=== PATIENT | male | born 1955 | race Caucasian/White ===

== ENCOUNTER 2017-10-11 06:28 | Emergency (ER) | payer SELFPAY ==
[~2017-10-11] VITALS: Ht 180.3 cm; Wt 90.0 kg
[2017-10-11 06:31] VITALS: BP 139/91; PULSE 62; RESP 16; TEMP 97.6; O2SAT 97
[2017-10-11] MEDS ORDERED: TAMS5CAP PO (06:47)
[2017-10-11] MEDS ORDERED: SODIUM CHLOR 0.9% 1000 ML INJ 1,000 ML IV ONE (07:35)
[2017-10-11] MEDS ORDERED: MORPHINE SULFATE 4 MG/ML INJ IV PUSH ONE ×2 (07:45→11:15)
[2017-10-11] MEDS ORDERED: KETOROLAC TROMETHAMINE 30 MG/ML (IVP) VIAL IV PUSH ONE (07:45)
[2017-10-11] MEDS ORDERED: SODIUM CHLORIDE 0.9% FLUSH 10 ML FLUSH IVF PRN (07:45)
[2017-10-11] MEDS ORDERED: ONDANSETRON HCL 4 MG/2 ML VIAL IV PUSH ONE (07:45)
[2017-10-11 08:08] LABS: BILIRUBIN, URINE NEG (NEG); BLOOD, URINE SMALL (NEG); GLUCOSE,URINE NEG (NEG); HYALINE CAST, URINE 1 /lpf (RARE); KETONE, URINE NEG (NEG); MUCUS URINE FEW /lpf (OCC); NITRITE,URINE NEG (NEG); PH, URINE 6.5 (5.0-8.5); URINE COLOR YELLOW (YELLW/STRAW); URINE LEUKOCYTE ESTERASE SMALL (NEG)
--- NOTE | 2017-10-11 08:10 | PD ---
HPI Chief Complaint: Flank/Kidney Pain Time Seen by Provider: 07:00 Travel History International Travel<30 days: No Contact w/Intl Traveler<30days: No Traveled to known affect area: No History of Present Illness HPI 61-year-old male with history of bilateral renal pack, presents today with complaints of left sided flank pain. Patient reports associated nausea with no vomiting. Patient reports passing a stone 5 days ago. He states he was feeling good after that however shortly thereafter he started sprinting more pain. He denies any fevers, chills. He reports his urine is darker than normal. The patient denies any abdominal pain. There is no reported diarrhea. There are no other complaints with this presentation. PFSH Past Medical History Kidney Stones: Yes Medical other: Yes (HX MRSA) Past Surgical History Abdominal Surgery: Yes (HERNIA REPAIR ) Social History Alcohol Use: Yes (RARE) Tobacco Use: Yes (2PPD) Substance Use: Yes (WEED) Allergies-Medications (Allergen,Severity, Reaction): Coded Allergies: No Known Allergies (Unverified , 10/11/17) Reported Meds & Prescriptions Reported Meds & Active Scripts Active Levaquin (Levofloxacin) 500 Mg Tablet 500 Mg PO DAILY Ketorolac (Ketorolac Tromethamine) 10 Mg Tab 10 Mg PO TID PRN Lorcet (Hydrocodone-Acetaminophen) 5-325 mg Tab 1 Tab PO Q6H PRN Reported Flomax (Tamsulosin HCl) 0.4 Mg Cap 0.4 Mg PO HS Review of Systems Except as stated in HPI: all other systems reviewed are Neg General / Constitutional: No: Fever, Chills HENT: No: Headaches, Lightheadedness, Neck Pain Cardiovascular: No: Chest Pain or Discomfort, Palpitations Respiratory: No: Cough, Shortness of Breath Gastrointestinal: Positive: Nausea, No: Vomiting, Abdominal Pain Genitourinary: Positive: Other, No: Dysuria Musculoskeletal: Positive: Pain (dark colored urine than normal. Bilateral flank pain, worse on the left than on the right.), No: Weakness Skin: No Rash, No Lesions Neurologic: No: Weakness, Dizziness Physical Exam Narrative GENERAL: Well-developed well-nourished male in no acute respiratory distress. SKIN: Focused skin assessment warm/dry. HEAD: Atraumatic. Normocephalic. EYES: Pupils equal and round. No scleral icterus. No injection or drainage. ENT: No nasal bleeding or discharge. Mucous membranes pink and moist. NECK: Trachea midline./Atraumatic CARDIOVASCULAR: Regular rate and rhythm. No murmur appreciated. RESPIRATORY: No accessory muscle use. Clear to auscultation. Breath sounds equal bilaterally. GASTROINTESTINAL: Abdomen soft, non-tender, nondistended. MUSCULOSKELETAL: No obvious deformities. No clubbing. No cyanosis. No edema. BACK: No CVA tenderness. No rash. No point tenderness on palpation of the spine. Objective left flank pain. Patient reports deeper than on the surface. Not reproducible. NEUROLOGICAL: Awake and alert. No obvious cranial nerve deficits. Motor grossly within normal limits. Normal speech. PSYCHIATRIC: Appropriate mood and affect; insight and judgment normal. Data Data Last Documented VS Vital Signs Date Time Temp Pulse Resp B/P (MAP) Pulse Ox O2 Delivery O2 Flow Rate FiO2 10/11/17 09:42 53 14 110/66 (81) 94 Room Air 10/11/17 06:31 97.6 Orders Orders Basic Metabolic Panel (Bmp) (10/11/17 07:35) Urinalysis - C+S If Indicated (10/11/17 07:35) Ecg Monitoring (10/11/17 07:35) Iv Access Insert/Monitor (10/11/17 07:35) Ketorolac Inj (Toradol Inj) (10/11/17 07:45) Ondansetron Inj (Zofran Inj) (10/11/17 07:45) Sodium Chloride 0.9% Flush (Ns Flush) (10/11/17 07:45) Sodium Chlor 0.9% 1000 Ml Inj (Ns 1000 M (10/11/17 07:35) Morphine Inj (Morphine Inj) (10/11/17 07:45) Ct Abd/Pel W/O Iv Contrast (10/11/17 07:49) Urine Culture (10/11/17 08:00) Levofloxacin 500 Mg Premix Inj (Levaquin (10/11/17 09:30) Labs Laboratory Tests Test 10/11/17 07:55 10/11/17 08:00 Blood Urea Nitrogen 15 MG/DL Creatinine 0.96 MG/DL Random Glucose 106 MG/DL Calcium Level 9.1 MG/DL Sodium Level 142 MEQ/L Potassium Level 4.3 MEQ/L Chloride Level 109 MEQ/L Carbon Dioxide Level 25.4 MEQ/L Anion Gap 8 MEQ/L Estimat Glomerular Filtration Rate 80 ML/MIN Urine Color YELLOW Urine Turbidity CLEAR Urine pH 6.5 Urine Specific Abbott 1.014 Urine Protein NEG mg/dL Urine Glucose (UA) NEG mg/dL Urine Ketones NEG mg/dL Urine Occult Blood SMALL Urine Nitrite NEG Urine Bilirubin NEG Urine Urobilinogen LESS THAN 2.0 MG/DL Urine Leukocyte Esterase SMALL Urine RBC 19 /hpf Urine WBC 18 /hpf Urine Hyaline Casts 1 /lpf Urine Mucus FEW /lpf Microscopic Urinalysis Comment CULTURE INDICATED MDM Medical Decision Making Medical Screen Exam Complete: Yes Emergency Medical Condition: Yes Differential Diagnosis Ureteral colic versus muscle skeletal pain versus pyelonephritis Narrative Course 61-year-old male history of renal coccus, presents today with points of left flank pain. Patient denies any fevers, chills. Patient has evidence of a urinary tract infection as well as hematuria on his urinalysis. Patient's CT scan shows a 5 mm stone on the left proximal ureter with moderate hydronephrosis. The patient has been given 500 mg of IVD Levaquin. He is also been given 1 L of fluid as well as 30 mg of ketorolac and 4 mg of morphine. He is much more comfortable. He'll be discharged with a prescription for Levaquin 500 mg daily for 9 days, Toradol 10 mg 3 times a day for 4 days, Lortab fives total number of 15 as needed for breakthrough pain for the Toradol. The patient will have a mandatory constant for urology. He is instructed return of he does any worsening pain, fevers chills, or any other reason. Diagnosis Primary Impression: Ureteral colic Additional Impression: UTI (urinary tract infection) Additional Instructions: Increase fluid intake. Return if worsening pain, fevers, chills, nausea vomiting, or any other reason that concerned her. A mandatory referral has been placed for outpatient urology follow up. He should receive a call within the next few days. Med/Other Pt SpecificInfo: Prescription(s) given Scripts Levofloxacin (Levaquin) 500 Mg Tablet 500 MG PO DAILY for Infection, #9 TAB 0 Refills Prov: Galen Lancaster MD 10/11/17 Ketorolac (Ketorolac) 10 Mg Tab 10 MG PO TID Y for PAIN SCALE 1 TO 5, #12 TAB 0 Refills Prov: Galen Lancaster MD 10/11/17 Hydrocodone-Acetaminophen (Lorcet) 5-325 mg Tab 1 TAB PO Q6H Y for PAIN, #15 TAB 0 Refills Prov: Galen Lancaster MD 10/11/17 Disposition: 01 DISCHARGE HOME Condition: Stable Galen Lancaster MD Oct 11, 2017 08:10
[2017-10-11 08:21] LABS: BICARBONATE 25.4 MEQ/L (21.0-32.0); CALCIUM 9.1 MG/DL (8.5-10.1); CREATININE 0.96 MG/DL (0.60-1.30)
--- NOTE | 2017-10-11 08:29 | RADRPT ---
EXAM DATE/TIME: 10/11/2017 07:50 [facility] COMPARISON: No previous studies available for comparison. INDICATIONS : Bilateral flank pain . ORAL CONTRAST: No oral contrast ingested. RADIATION DOSE: 16.01 CTDIvol (mGy) MEDICAL HISTORY : Hypertension. Renal calculi. SURGICAL HISTORY : Inguinal hernia repair. ENCOUNTER: Initial ACUITY: 2 days PAIN SCALE: 10/10 LOCATION: Bilateral flank TECHNIQUE: Volumetric scanning of the abdomen and pelvis was performed. Using automated exposure control and ad justment of the mA and/or kV according to patient size, radiation dose was kept as low as reasonably achievable to obtain optimal diagnostic quality images. DICOM format image data is available electro nically for review and comparison. FINDINGS: LOWER LUNGS: The visualized lower lungs are clear. LIVER: The liver is diffusely low in attenuation consistent with fatty infiltration. Focal fatty sparing is seen adjacent to the gallbladder fossa. No mass or ductal dilatation. Gallbladder is unremarkable. SPLEEN: Normal size without lesion. PANCREAS: Within normal limits. KIDNEYS: A 5 mm proximal left ureteral stone observed. Discharge mild hydronephrosis and hydroureter. No perin ephric stranding or fluid collections. No other stones observed. Atherosclerotic calcifications noted within the renal pelves bilaterally. ADRENAL GLANDS: Within normal limits. VASCULAR: There is no aortic aneurysm. BOWEL/MESENTERY: The stomach, small bowel, and colon demonstrate no acute abnormality. There is no free intraperitone al air or fluid. ABDOMINAL WALL: Within normal limits. RETROPERITONEUM: There is no lymphadenopathy. BLADDER: No wall thickening or mass. REPRODUCTIVE: Within normal limits. INGUINAL: There is no lymphadenopathy or hernia. MUSCULOSKELETAL: Within normal limits for patient age. CONCLUSION: 1. 5 mm proximal left ureteral stone with mild hydronephrosis and hydroureter. The stone is currently at the L3-L4 disc space level. 2. Hepatic steatosis. Gume Maxwell Jr., MD on October 11, 2017 at 8:09 Board Certified Radiologist. This report was verified electronically.
[2017-10-11] MEDS ORDERED: LEVOFLOXACIN 500 MG PREMIX INJ 100 ML IV ONE (09:30)
[2017-10-11] MEDS ORDERED: LEVA500T33 PO (09:33)
[2017-10-11] MEDS ORDERED: HYDR-3576 PO (09:33)
[2017-10-11] MEDS ORDERED: KETO10 PO (09:33)
[2017-10-11 09:42] VITALS: BP 110/66; PULSE 53; RESP 14; O2SAT 94
[2017-10-11 11:04] VITALS: BP 120/68; PULSE 50; RESP 16; O2SAT 94
[2017-10-11 12:00] VITALS: BP 125/60; PULSE 60; RESP 16; O2SAT 95
== END 2017-10-11 12:24 | disposition home or self-care (01) ==
LOC: NEPE 06:28
DX: N23 Unspecified renal colic (principal); N39.0 Urinary tract infection, site not specified; F17.210 Nicotine dependence, cigarettes, uncomplicated; Z87.442 Personal history of urinary calculi
CPT/HCPCS: 74176; 80048; 81001; 87086; 96361; 96374; 96375; 96376; 99285; J1885; J1956; J2270; J2405; J7030

== ENCOUNTER 2017-11-02 13:08 | Emergency (ER) | payer SELFPAY ==
[~2017-11-02] VITALS: Ht 180.3 cm; Wt 100.0 kg
[~2017-11-02 13:08] MED LIST: HYDR-3576 PO; KETO10 PO; LEVA500T33 PO; TAMS5CAP PO
[2017-11-02 13:11] VITALS: BP 129/77; PULSE 69; RESP 12; TEMP 98; O2SAT 98
--- NOTE | 2017-11-02 13:48 | PD ---
HPI Chief Complaint: Complaint Time Seen by Provider: 13:44 Travel History International Travel<30 days: No Contact w/Intl Traveler<30days: No Traveled to known affect area: No History of Present Illness HPI 61-year-old male with history of left-sided flank pain off and on for the past 3 weeks. Patient states he was seen here 3 weeks ago and told had a 5 mm stone in his left ureter. Was referred to urologist on a mandatory referral but never got a call back according to him and his . He states he is doing okay until 2 days ago when he had increasing woody-colored urine, and an increasing pain overnight with derrek blood in his urine since last evening. His pain is currently 9 and 10 in the left flank with radiation into the left testicle. Patient is nauseous but denies vomiting. Patient denies fever, chills, or other symptoms. Patient has no known drug allergies. PFSH Past Medical History Kidney Stones: Yes Past Surgical History Abdominal Surgery: Yes (HERNIA REPAIR ) Social History Alcohol Use: Yes (RARE) Tobacco Use: Yes (1/2PPD) Substance Use: Yes (WEED) Allergies-Medications (Allergen,Severity, Reaction): Coded Allergies: No Known Allergies (Unverified , 10/11/17) Reported Meds & Prescriptions Reported Meds & Active Scripts Active Percocet (Oxycodone-Acetaminophen) 5-325 mg Tab 1 Tab PO Q6H PRN Zofran (Ondansetron HCl) 4 Mg Tab 4 Mg PO Q6HR PRN Cipro (Ciprofloxacin HCl) 500 Mg Tab 500 Mg PO BID Flomax (Tamsulosin HCl) 0.4 Mg Cap 0.4 Mg PO HS Levaquin (Levofloxacin) 500 Mg Tablet 500 Mg PO DAILY Ketorolac (Ketorolac Tromethamine) 10 Mg Tab 10 Mg PO TID PRN Lorcet (Hydrocodone-Acetaminophen) 5-325 mg Tab 1 Tab PO Q6H PRN Review of Systems Except as stated in HPI: all other systems reviewed are Neg General / Constitutional: No: Fever, Chills Eyes: No: Visual changes HENT: No: Headaches Cardiovascular: No: Chest Pain or Discomfort Respiratory: No: Shortness of Breath Gastrointestinal: Positive: Nausea, No: Abdominal Pain Genitourinary: Positive: Hematuria, Flank Pain, No: Urgency, Frequency, Dysuria , Nocturia Musculoskeletal: No: Pain Skin: No Rash Neurologic: No: Weakness Psychiatric: No: Depression Endocrine: No: Polydipsia Hematologic/Lymphatic: No: Easy Bruising Physical Exam Narrative GENERAL: Patient appears in moderate distress. SKIN: Warm. Decreased bowel without diaphoresis HEAD: Atraumatic. Normocephalic. EYES: Pupils equal and round. No scleral icterus. No injection or drainage. ENT: No nasal bleeding or discharge. Mucous membranes pink and moist. Pharynx clear. Airway patent. NECK: Trachea midline. Supple nontender. CARDIOVASCULAR: Regular rate and rhythm. RESPIRATORY: No accessory muscle use. Clear to auscultation. Breath sounds equal bilaterally. GASTROINTESTINAL: Abdomen soft, non-tender, nondistended. Hepatic and splenic margins not palpable. MUSCULOSKELETAL: Extremities without clubbing, cyanosis, or edema. No obvious deformities. NEUROLOGICAL: Awake and alert. No obvious cranial nerve deficits. Motor grossly within normal limits. Five out of 5 muscle strength in the arms and legs. Normal speech. PSYCHIATRIC: Appropriate mood and affect; insight and judgment normal. Data Data Last Documented VS Vital Signs Date Time Temp Pulse Resp B/P (MAP) Pulse Ox O2 Delivery O2 Flow Rate FiO2 11/02/17 14:17 18 11/02/17 13:11 98.0 12 129/77 (94) 98 Room Air Orders Orders Complete Blood Count With Diff (11/02/17 13:52) Comprehensive Metabolic Panel (11/02/17 13:52) Ua Includes Microscopic (11/02/17 13:52) Ct Abd/Pel W/O Iv Contrast (11/02/17 13:52) Iv Access Insert/Monitor (11/02/17 13:52) Ketorolac Inj (Toradol Inj) (11/02/17 14:00) Ondansetron Inj (Zofran Inj) (11/02/17 14:00) Sodium Chloride 0.9% Flush (Ns Flush) (11/02/17 14:00) Morphine Inj (Morphine Inj) (11/02/17 14:00) Sodium Chlor 0.9% 1000 Ml Inj (Ns 1000 M (11/02/17 14:00) Tamsulosin (Flomax) (11/02/17 14:30) Oxycodone-Acetamin 5-325 Mg (Percocet (11/02/17 15:45) Labs Laboratory Tests Test 11/02/17 14:10 White Blood Count 9.2 TH/MM3 Red Blood Count 4.54 MIL/MM3 Hemoglobin 14.5 GM/DL Hematocrit 42.0 % Mean Corpuscular Volume 92.6 FL Mean Corpuscular Hemoglobin 32.0 PG Mean Corpuscular Hemoglobin Concent 34.6 % Red Cell Distribution Width 13.5 % Platelet Count 212 TH/MM3 Mean Platelet Volume 8.7 FL Neutrophils (%) (Auto) 63.9 % Lymphocytes (%) (Auto) 21.7 % Monocytes (%) (Auto) 11.8 % Eosinophils (%) (Auto) 2.1 % Basophils (%) (Auto) 0.5 % Neutrophils # (Auto) 5.9 TH/MM3 Lymphocytes # (Auto) 2.0 TH/MM3 Monocytes # (Auto) 1.1 TH/MM3 Eosinophils # (Auto) 0.2 TH/MM3 Basophils # (Auto) 0.0 TH/MM3 CBC Comment DIFF FINAL Differential Comment Blood Urea Nitrogen 19 MG/DL Creatinine 1.31 MG/DL Random Glucose 89 MG/DL Total Protein 6.9 GM/DL Albumin 3.6 GM/DL Calcium Level 8.8 MG/DL Alkaline Phosphatase 103 U/L Aspartate Amino Transf (AST/SGOT) 20 U/L Alanine Aminotransferase (ALT/SGPT) 21 U/L Total Bilirubin 0.6 MG/DL Sodium Level 139 MEQ/L Potassium Level 4.0 MEQ/L Chloride Level 107 MEQ/L Carbon Dioxide Level 24.4 MEQ/L Anion Gap 8 MEQ/L Estimat Glomerular Filtration Rate 56 ML/MIN MDM Medical Decision Making Medical Screen Exam Complete: Yes Emergency Medical Condition: Yes Medical Record Reviewed: Yes Differential Diagnosis Hematuria. Renal colic. Hydronephrosis. Kidney stone. Narrative Course Patient is in pain but medically stable at time of exam. Labs ordered including CBC, CMP, and urinalysis. IV access is obtained patient is given 2 mg morphine IV, 4 mg Zofran IV, and 30 mg Toradol IV. Patient is given 0.4 mg [address] by mouth. CT of the abdomen and pelvis was ordered without contrast. CBC is unremarkable. Chemistries are remarkable for a BUN 19, creatinine elevated to 1.31 up from 0.94 previously. GFR is 56. Otherwise normal. CT shows a 4 mm x 6 mm stone in the mid section of the left ureter with mild postobstructive changes of the left kidney. This is per the radiologist. Call was placed to the urologist on-call, and the patient is discussed with Dr. Platt. He recommends sending the patient home with Flomax, pain medication, nausea medication and an antibiotic. Patient is to call Dr. Reynoso's office on Sunday. Work note is given. Patient can return to the ED if symptoms worsen over the weekend. Diagnosis Primary Impression: Kidney stone on left side Referrals: Bob Platt MD 3 days Patient Instructions: General Instructions, Kidney Stones (ED) Departure Forms: Work Release Enter return to work date: Nov 06, 2017 Additional Instructions: CBC is unremarkable. Chemistries are remarkable for a BUN 19, creatinine elevated to 1.31 up from 0.94 previously. GFR is 56. Otherwise normal. CT shows a 4 mm x 6 mm stone in the mid section of the left ureter with mild postobstructive changes of the left kidney. This is per the radiologist. Call was placed to the urologist on-call, and the patient is discussed with Dr. Platt. He recommends sending the patient home with Flomax, pain medication, nausea medication and an antibiotic. Patient is to call Dr. Reynoso's office on Sunday. Work note is given. Patient can return to the ED if symptoms worsen over the weekend. Med/Other Pt SpecificInfo: Prescription(s) given Scripts Oxycodone-Acetaminophen (Percocet) 5-325 mg Tab 1 TAB PO Q6H Y for PAIN, #20 TAB 0 Refills Prov: Desmond Romo MD 11/02/17 Ondansetron (Zofran) 4 Mg Tab 4 MG PO Q6HR Y for NAUSEA OR VOMITING, #20 TAB 0 Refills Prov: Desmond Romo MD 11/02/17 Ciprofloxacin (Cipro) 500 Mg Tab 500 MG PO BID for Infection, #20 TAB 0 Refills Prov: Desmond Romo MD 11/02/17 Tamsulosin (Flomax) 0.4 Mg Cap 0.4 MG PO HS for Manage Prostate Problems, #30 CAP 0 Refills Prov: Desmond Romo MD 11/02/17 Disposition: 01 DISCHARGE HOME Condition: Stable Tomi Duncan Nov 02, 2017 13:48
[2017-11-02] MEDS ORDERED: ONDANSETRON HCL 4 MG/2 ML VIAL IVP ONE (14:00)
[2017-11-02] MEDS ORDERED: MORPHINE SULFATE 2 MG/ML INJ IM ONE (14:00)
[2017-11-02] MEDS ORDERED: SODIUM CHLOR 0.9% 1000 ML INJ 1,000 ML IV ONE (14:00)
[2017-11-02] MEDS ORDERED: SODIUM CHLORIDE 0.9% FLUSH 10 ML FLUSH IVF PRN (14:00)
[2017-11-02] MEDS ORDERED: KETOROLAC TROMETHAMINE 30 MG/ML (IVP) VIAL IVP ONE (14:00)
[2017-11-02] MEDS ORDERED: TAMSULOSIN HCL 0.4 MG CAP PO ONE (14:30)
[2017-11-02 14:34] LABS: AUTOMATED NEUTROPHIL # 5.9 TH/MM3 (1.8-7.7); BASOPHIL % 0.5 % (0.0-2.0); EOSINOPHIL # 0.2 TH/MM3 (0-0.4); EOSINOPHIL % 2.1 % (0.0-4.0); HEMOGLOBIN 14.5 GM/DL (13.0-17.0); LYMPH % 21.7 % (9.0-44.0); MEAN CELL VOLUME 92.6 FL (80.0-100.0); MEAN CORPUSCULAR HGB CONC 34.6 % (32.0-36.0); MEAN PLATELET VOLUME 8.7 FL (7.0-11.0); MONO % 11.8 % (0.0-8.0); MONOCYTE # 1.1 TH/MM3 (0-0.9); NEUT % 63.9 % (16.0-70.0); PLATELET COUNT 212 TH/MM3 (150-450); RED BLOOD COUNT 4.54 MIL/MM3 (4.50-5.90); RED CELL DISTRIBUTION WIDTH 13.5 % (11.6-17.2); WHITE BLOOD COUNT 9.2 TH/MM3 (4.0-11.0)
--- NOTE | 2017-11-02 14:38 | RADRPT ---
EXAM DATE/TIME: 11/02/2017 14:23 [facility] COMPARISON: CT ABDOMEN & PELVIS W/O CONTRAST, October 11, 2017, 7:50. INDICATIONS : Left flank pain, blood in urine ORAL CONTRAST: No oral contrast ingested. RADIATION DOSE: 14.41 CTDIvol (mGy) MEDICAL HISTORY : Kidney stones SURGICAL HISTORY : Hernia repair ENCOUNTER: Initial ACUITY: 1 day PAIN SCALE: 7/10 LOCATION: Left flank TECHNIQUE: Volumetric scanning of the abdomen and pelvis was performed. Using automated exposure control and ad justment of the mA and/or kV according to patient size, radiation dose was kept as low as reasonably achievable to obtain optimal diagnostic quality images. DICOM format image data is available electro nically for review and comparison. FINDINGS: Right kidney/ureter: The right kidney is normal in size. No stones are seen within the collecting system. The right ureter is followed from its course and is unremarkable in appearance. Left kidney/ureter: The left kidney is normal in size. There mild hydronephrotic changes. There is a 1 mm nonobstructing stone seen within the collecting system. The left ureter is dilated. The dilated ureter can be follow ed down into the pelvis at which point there is a 4 mm x 6 mm stone at the point where the ureter microbiology supervisor sses the left iliac. No stones are identified within the bladder. The visualized portions of liver and spleen are unremarkable. The pancreas and adrenal glands are int act. There is no retroperitoneal adenopathy. There is no free air free fluid. Note is made of a small umbilical hernia. There is no free fluid within the pelvis. No iliac or inguinal adenopathy is seen. CONCLUSION: 1. There is a 4 mm x 6 mm stone in the mid section of the left ureter with mild postobstructive hicks es of the left kidney. Anshu Galeana MD on November 02, 2017 at 14:34 Board Certified Radiologist. This report was verified electronically.
[2017-11-02 14:39] LABS: ALKALINE PHOSPHATASE 103 U/L (45-117); TOTAL BILIRUBIN ADULT 0.6 MG/DL (0.2-1.0); TOTAL PROTEIN 6.9 GM/DL (6.4-8.2)
[2017-11-02 14:40] LABS: ALBUMIN 3.6 GM/DL (3.4-5.0); ALT (GPT) 21 U/L (12-78); AST (GOT) 20 U/L (15-37); BICARBONATE 24.4 MEQ/L (21.0-32.0); BLOOD UREA NITROGEN 19 MG/DL (7-18); CALCIUM 8.8 MG/DL (8.5-10.1); CHLORIDE 107 MEQ/L (98-107); CREATININE 1.31 MG/DL (0.60-1.30); GLOMERULAR FILTRATION RATE 56 ML/MIN (>89); GLUCOSE,RANDOM 89 MG/DL (74-106); SODIUM (NA) 139 MEQ/L (136-145)
[2017-11-02] MEDS ORDERED: oxyCODONE/ACETAMINOPHEN 5 MG/325 MG TAB PO ONE (15:45)
[2017-11-02] MEDS ORDERED: PERC5TAB12 PO (15:46)
[2017-11-02] MEDS ORDERED: TAMS5CAP PO (15:46)
[2017-11-02] MEDS ORDERED: ZOFR4TAB PO (15:46)
[2017-11-02] MEDS ORDERED: CIPR-9 PO (15:46)
[2017-11-02 16:21] LABS: BILIRUBIN, URINE NEG (NEG); BLOOD, URINE LARGE (NEG); GLUCOSE,URINE NEG (NEG); KETONE, URINE NEG (NEG); NITRITE,URINE NEG (NEG); URINE COLOR YELLOW (YELLW/STRAW); URINE LEUKOCYTE ESTERASE NEG (NEG)
== END 2017-11-02 16:25 | disposition home or self-care (01) ==
LOC: NEPD 13:08
DX: N20.1 Calculus of ureter (principal); R31.9 Hematuria, unspecified; R11.0 Nausea; F17.200 Nicotine dependence, unspecified, uncomplicated; Z87.442 Personal history of urinary calculi
CPT/HCPCS: 74176; 80053; 81001; 85025; 96361; 96372; 96374; 96375; 99284; J1885; J2270; J2405; J7030

== ENCOUNTER 2017-11-22 07:20 | Emergency (ER) | payer SELFPAY ==
[~2017-11-22] VITALS: Ht 180.3 cm; Wt 95.0 kg
[~2017-11-22 07:20] MED LIST changes: +CIPR-9 PO; +PERC5TAB12 PO; +ZOFR4TAB PO
[2017-11-22 07:23] VITALS: BP 163/97; PULSE 69; RESP 16; TEMP 97.4; O2SAT 100
[2017-11-22 07:51] VITALS: BP 149/92; PULSE 67; RESP 18; O2SAT 98
--- NOTE | 2017-11-22 08:12 | PD ---
HPI Chief Complaint: Flank/Kidney Pain Time Seen by Provider: 07:45 Travel History International Travel<30 days: No Contact w/Intl Traveler<30days: No Traveled to known affect area: No History of Present Illness HPI Is a 61-year-old male presents emergency department with right flank pain. Patient was initially diagnosed with a proximal ureteral stone October 14 of this year, is referred to urology but he has no insurance, mandatory referral was placed at that time the patient never followed up. He was seen again approximately 3 weeks ago here and was found to have a mid ureteral stone similar size, there was some hydronephrosis and hydroureter at that time. Patient states his pain was better controlled but they are still waiting for patient assistance of not been able to follow-up with Dr. Reynoso because he would not seem to the patient's assistance card was satisfied. No nausea no vomiting no diarrhea no constipation. patient states his pain came back this morning, right flank, radiation to his groin, context and associated signs and symptoms as above PFSH Past Medical History Diabetes: No Kidney Stones: Yes Tetanus Vaccination: > 5 Years Influenza Vaccination: No Past Surgical History Abdominal Surgery: Yes (HERNIA REPAIR ) Social History Alcohol Use: Yes (RARE) Tobacco Use: Yes (1/2PPD) Substance Use: Yes (WEED) Allergies-Medications (Allergen,Severity, Reaction): Coded Allergies: No Known Allergies (Unverified , 11/22/17) Reported Meds & Prescriptions Reported Meds & Active Scripts Active Flomax (Tamsulosin HCl) 0.4 Mg Cap 0.4 Mg PO HS [place] (Hydrocodone-Acetaminophen) 5 Mg-325 Mg Tab 1 Tab PO Q6H PRN Zofran (Ondansetron HCl) 4 Mg Tab 4 Mg PO Q6HR PRN Ketorolac (Ketorolac Tromethamine) 10 Mg Tab 10 Mg PO TID PRN Review of Systems Except as stated in HPI: all other systems reviewed are Neg Physical Exam Narrative GENERAL: Well-developed well-nourished, appears quite comfortable in no obvious distress SKIN: Focused skin assessment warm/dry. HEAD: Atraumatic. Normocephalic. EYES: Pupils equal and round. No scleral icterus. No injection or drainage. ENT: No nasal bleeding or discharge. Mucous membranes pink and moist. NECK: Trachea midline. No JVD. CARDIOVASCULAR: Regular rate and rhythm. No murmur appreciated. RESPIRATORY: No accessory muscle use. Clear to auscultation. Breath sounds equal bilaterally. GASTROINTESTINAL: Abdomen soft, non-tender, nondistended. Hepatic and splenic margins not palpable. Minimal right-sided CVA tenderness, otherwise abdomen is benign MUSCULOSKELETAL: No obvious deformities. No clubbing. No cyanosis. No edema. NEUROLOGICAL: Awake and alert. No obvious cranial nerve deficits. Motor grossly within normal limits. Normal speech. PSYCHIATRIC: Appropriate mood and affect; insight and judgment normal. Data Data Last Documented VS Orders Orders Urinalysis - C+S If Indicated (11/22/17 07:34) Complete Blood Count With Diff (11/22/17 07:36) Basic Metabolic Panel (Bmp) (11/22/17 07:36) Sodium Chlor 0.9% 1000 Ml Inj (Ns 1000 M (11/22/17 08:15) Ketorolac Inj (Toradol Inj) (11/22/17 08:15) Iv Access Insert/Monitor (11/22/17 08:10) Acetamin-Hydrocod 325-5 Mg ([place] 5-325 (11/22/17 09:30) Mandatory Outpatient Referral (11/22/17 09:33) Cath For Specimen (11/22/17 09:42) Ed Discharge Order (11/22/17 10:53) Labs Laboratory Tests Test 11/22/17 08:00 11/22/17 10:05 White Blood Count 9.2 TH/MM3 Red Blood Count 4.38 MIL/MM3 Hemoglobin 14.2 GM/DL Hematocrit 40.2 % Mean Corpuscular Volume 91.9 FL Mean Corpuscular Hemoglobin 32.4 PG Mean Corpuscular Hemoglobin Concent 35.2 % Red Cell Distribution Width 13.6 % Platelet Count 229 TH/MM3 Mean Platelet Volume 8.1 FL Neutrophils (%) (Auto) 68.9 % Lymphocytes (%) (Auto) 17.8 % Monocytes (%) (Auto) 10.4 % Eosinophils (%) (Auto) 2.2 % Basophils (%) (Auto) 0.7 % Neutrophils # (Auto) 6.4 TH/MM3 Lymphocytes # (Auto) 1.6 TH/MM3 Monocytes # (Auto) 1.0 TH/MM3 Eosinophils # (Auto) 0.2 TH/MM3 Basophils # (Auto) 0.1 TH/MM3 CBC Comment DIFF FINAL Differential Comment Blood Urea Nitrogen 21 MG/DL Creatinine 1.32 MG/DL Random Glucose 116 MG/DL Calcium Level 8.7 MG/DL Sodium Level 142 MEQ/L Potassium Level 3.7 MEQ/L Chloride Level 109 MEQ/L Carbon Dioxide Level 24.5 MEQ/L Anion Gap 9 MEQ/L Estimat Glomerular Filtration Rate 56 ML/MIN Urine Color YELLOW Urine Turbidity CLEAR Urine pH 5.5 Urine Specific [place] 1.031 Urine Protein TRACE mg/dL Urine Glucose (UA) NEG mg/dL Urine Ketones NEG mg/dL Urine Occult Blood MOD Urine Nitrite NEG Urine Bilirubin NEG Urine Urobilinogen LESS THAN 2.0 MG/DL Urine Leukocyte Esterase NEG Urine RBC 13 /hpf Urine WBC 3 /hpf Urine Calcium Oxalate Crystals RARE /hpf Urine Mucus FEW /lpf Microscopic Urinalysis Comment CULT NOT INDICATED MDM Medical Decision Making Medical Screen Exam Complete: Yes Emergency Medical Condition: Yes Differential Diagnosis Kidney stone, ureterolithiasis, urinary tract infection, acute kidney injury Narrative Course Patient room to the emergency department, creatinine is minimally elevated at 1.3 but unchanged from November 02. UA noninfected. The patient was given pain medicine is feeling better. I discussed with him that he needs to follow- up with urologist at this point, he has been counseled multiple times in the past, I discussed his case with case management at this time they recommend placing mandatory referral. All this was discussed with patient, recommended continuing Flomax, pain management and discuss returning to criteria. He is stable for discharge Diagnosis Primary Impression: Renal colic on right side Med/Other Pt SpecificInfo: Prescription(s) given Scripts Tamsulosin (Flomax) 0.4 Mg Cap 0.4 MG PO HS for Manage Prostate Problems, #30 CAP 0 Refills Prov: Rodolfo Mullins MD 11/22/17 Hydrocodone-Acetaminophen ([place]) 5 Mg-325 Mg Tab 1 TAB PO Q6H Y for PAIN, #10 TAB 0 Refills Prov: Rodolfo Mullins MD 11/22/17 Disposition: 01 DISCHARGE HOME Condition: Stable Rodolfo Mullins MD Nov 22, 2017 08:12
[2017-11-22 08:15] LABS: AUTOMATED NEUTROPHIL # 6.4 TH/MM3 (1.8-7.7); BASOPHIL # 0.1 TH/MM3 (0-0.2); BASOPHIL % 0.7 % (0.0-2.0); EOSINOPHIL # 0.2 TH/MM3 (0-0.4); EOSINOPHIL % 2.2 % (0.0-4.0); HEMATOCRIT 40.2 % (39.0-51.0); HEMOGLOBIN 14.2 GM/DL (13.0-17.0); LYMPH % 17.8 % (9.0-44.0); LYMPHOCYTE # 1.6 TH/MM3 (1.0-4.8); MEAN CELL VOLUME 91.9 FL (80.0-100.0); MEAN CORPUSCULAR HEMOGLOBIN 32.4 PG (27.0-34.0); MEAN CORPUSCULAR HGB CONC 35.2 % (32.0-36.0); MEAN PLATELET VOLUME 8.1 FL (7.0-11.0); MONO % 10.4 % (0.0-8.0); NEUT % 68.9 % (16.0-70.0); PLATELET COUNT 229 TH/MM3 (150-450); RED BLOOD COUNT 4.38 MIL/MM3 (4.50-5.90); RED CELL DISTRIBUTION WIDTH 13.6 % (11.6-17.2); WHITE BLOOD COUNT 9.2 TH/MM3 (4.0-11.0)
[2017-11-22] MEDS ORDERED: SODIUM CHLOR 0.9% 1000 ML INJ 1,000 ML IV ONE (08:15)
[2017-11-22] MEDS ORDERED: KETOROLAC TROMETHAMINE 30 MG/ML (IVP) VIAL IV PUSH ONE (08:15)
[2017-11-22 08:36] LABS: BICARBONATE 24.5 MEQ/L (21.0-32.0); CALCIUM 8.7 MG/DL (8.5-10.1); CREATININE 1.32 MG/DL (0.60-1.30)
[2017-11-22] MEDS ORDERED: ACETAMINOPHEN/HYDROcodone 325 MG/5 MG TAB PO ONE (09:30)
[2017-11-22] MEDS ORDERED: TAMS5CAP PO (09:31)
[2017-11-22] MEDS ORDERED: NORC5TAB PO (09:31)
[2017-11-22 09:52] VITALS: BP 111/67; PULSE 55; RESP 18; O2SAT 99
[2017-11-22 10:44] LABS: BILIRUBIN, URINE NEG (NEG); BLOOD, URINE MOD (NEG); CALCIUM OXALATE CRYSTALS,URINE RARE /hpf; GLUCOSE,URINE NEG (NEG); KETONE, URINE NEG (NEG); MUCUS URINE FEW /lpf (OCC); NITRITE,URINE NEG (NEG); PH, URINE 5.5 (5.0-8.5); URINE COLOR YELLOW (YELLW/STRAW); URINE LEUKOCYTE ESTERASE NEG (NEG)
== END 2017-11-22 11:19 | disposition home or self-care (01) ==
LOC: NEPC 07:20
DX: N23 Unspecified renal colic (principal); F17.200 Nicotine dependence, unspecified, uncomplicated; F12.90 Cannabis use, unspecified, uncomplicated; Z87.442 Personal history of urinary calculi; Z79.899 Other long term (current) drug therapy
CPT/HCPCS: 80048; 81001; 85025; 96374; 99284; J1885; J7030